=== PATIENT | female | born 1950 | race Caucasian/White ===

== ENCOUNTER 2022-11-06 16:39 | Inpatient (IN) | payer MEDICARE, OTHER, SELFPAY ==
--- NOTE | ~2022-11-06 | XR_ITS ---
EXAMINATION: XR PELVIS CLINICAL INFORMATION: Left hip hemiarthroplasty COMPARISON: 11/06/2022 TECHNIQUE: AP view of the pelvis. FINDINGS: Mild postoperative soft tissue gas at the left hip. The prosthetic left femoral head is well-positioned within the acetabulum. The noncemented femoral stem is well centered in the medullary cavity the proximal femoral diaphysis. No abnormal lucency or fracture around the newly placed hardware. The right hip is normal. The partially visualized osseous pelvic ring is intact. XR/XR pelvis 1-2V IMPRESSION: Status post left hip hemiarthroplasty. Alignment is normal at the left hip.
--- NOTE | ~2022-11-06 | XR_ITS ---
EXAMINATION: XR KNEE, LEFT CLINICAL INFORMATION: Fall and pain COMPARISON: None available. TECHNIQUE: Three views of the left knee. FINDINGS: No significant knee joint effusion. Patient was unable to straighten out her knee due to pain. No acute fracture or dislocation seen. No cortical disruption or trabecular irregularity to suggest underlying occult fracture. Surrounding soft tissues unremarkable. XR/XR knee LT 2V IMPRESSION: No acute fracture or dislocation.
--- NOTE | ~2022-11-06 | XR_ITS ---
EXAMINATION: XR HIP, LEFT WITH AP PELVIS CLINICAL INFORMATION: For surgical planning. Left hip fracture. COMPARISON: Pelvic CT scan of 11/06/2022 TECHNIQUE: Two views of the left hip. One view of the pelvis. XR/XR hip LT min 2V FINDINGS/IMPRESSION: Subcapital left femoral neck fracture is again noted with anterior apex angulation. The femoral head is well seated in the acetabulum. No additional acute fractures are noted in the pelvis. Mild deformity of the right inferior pubic ramus appears chronic. Right hip joint and symphysis pubis are intact. Limited evaluation of the sacroiliac joints is unremarkable. Posterior fusion hardware is redemonstrated at L4-L5. Anastomotic stephani are noted projecting over the right iliac bone.
--- NOTE | ~2022-11-06 | CT_ITS ---
EXAMINATION: CT PELVIS WITHOUT CONTRAST CLINICAL INFORMATION: History of 2 pelvic fractures. Fall. COMPARISON: I do not have any pertinent prior studies available for comparison TECHNIQUE: Helical scanning was performed with submillimeter collimation through the pelvis. Sagittal and coronal multiplanar 2-D reconstructions were obtained. This CT examination was performed using dose optimization techniques as appropriate, variously including the following: *Automated exposure control *Adjustment of mA and/or kV according to patient size (this includes techniques or standardized protocols for targeted exams where dose is matched to indication/reason for exam; i.e. extremities or head) *Use of iterative reconstruction technique DLP: 334 mGy-cm FINDINGS: PELVIS: Bladder is decompressed. Uterus is unremarkable. Extensive colonic diverticulosis but no obvious diverticulitis. Anastomotic staple line seen within the bowel loops in the visualized right lower quadrant. No significant free air or free fluid. OSSEOUS STRUCTURES: There are several abnormalities of note. There is a left femoral neck fracture seen with apex anterior angulation. The left femoral head itself is well seated within the acetabulum with the fracture impacted and rotated into the femoral head. The appearance is more acute to subacute. There are healed fractures of the bilateral inferior pubic rami. Degenerative changes in the contralateral right hip and pubic symphysis. Postoperative changes in the visualized lower lumbar spine with posterior pedicle screw and emilee fixation at L4/L5 with the mild residual grade 1 anterolisthesis at this level and secondary degenerative changes at L5/S1. CT/CT pelvis wo IV con IMPRESSION: Left femoral neck fracture with apex anterior angulation. The left femoral head itself is well seated within the acetabulum with the fracture impacted and rotated into the femoral head. The appearance is more acute to subacute but I do not have prior studies available for comparison.
[2022-11-06 16:43] VITALS: BP 137/76; BP 152/80; PULSE 103; PULSE 80; TEMP 36.1; O2SAT 96; O2SAT 98; BMI 21.8
[2022-11-06 17:00] VITALS: BP 127/57; PULSE 72; RESP 16; TEMP 37.1; O2SAT 97
--- NOTE | 2022-11-06 17:00 | ED.FALL ---
HPI - Fall General Chief Complaint: Fall Stated Complaint: L HIP PAIN S/P FALL PER EMS Time Seen by Provider: 11/06/22 16:51 Source: patient Mode of arrival: EMS Limitations: no limitations History of Present Illness HPI Narrative: Patient comes to the emergency room complaining of left-sided hip pain. Patient states that she was walking down the stairs on her deck, missed the last step, landed on the left side of her hip. Patient did not hit her head, did not lose consciousness, denies neck pain or headache. Patient states that she has severe left-sided hip pain and mild to moderate pain on the left knee. Patient has history of osteoma leash a, states that she has history of left a atraumatic pelvic fractures. Patient states she has severe pain in the left side of the hip and thinks it is broken. Related Data Allergies Allergy/AdvReac Type Severity Reaction Status Date / Time shellfish derived Allergy Hives Verified 11/06/22 18:23 Sulfa (Sulfonamide Allergy Hives Verified 11/06/22 18:23 Antibiotics) Review of Systems Review of Systems: Constitutional : No Weight loss, No Fever, No Chills, No Night Sweats, No Fatigue, No Malaise ENT/Mouth : No Hearing loss, No Ear Pain, No Nasal Congestion, No Sinus Pain, No Hoarseness, No sore throat, No Rhinorrhea, No Swallowing Difficulty Eyes: No Eye Pain, No Swelling, No Redness, No Foreign Body, No Discharge, No Vision Changes Cardiovascular : No Chest Pain, No SOB, No Dyspnea on Exertion, No Orthopnea, No Edema, No Palpitations Respiratory : No Cough, No Sputum, No Wheezing, No Smoke Exposure, No Dyspnea Gastrointestinal : No Nausea, No Vomiting, No Diarrhea, No Constipation, No abdominal Pain, No Hematochezia, No Melena Genitourinary : no irregular bleeding, No Dysuria, No Urinary Frequency, No Hematuria, No Urinary Incontinence, No Urgency, No Flank Pain, No Urinary Flow Changes, No Hesitancy Musculoskeletal : Complaining of severe 9/10 left-sided hip pain and mild to moderate left knee pain, No Myalgias, No Joint Swelling Skin : No Skin Lesions, No rash Neuro : No Weakness, No Numbness, No Paresthesias, No Loss of Consciousness, No Dizziness, No Headache Psych : No Anxiety/Panic, No Depression, No SI/HI/AH/VH, No Social Issues, Heme/Lymph: No Bruising, No Bleeding,No Lymphadenopathy Endocrine : No Polyuria, No Polydipsia, No Temperature Intolerance [facility] Past Medical History Medical History (Updated 11/06/22 @ 18:58 by Juany Peñaloza MD) Osteomalacia Social History Social History Alcohol intake: never Smoked in Last 30 Days: No Physical Exam Vital Signs: Vital Signs: Last Vital Signs Temp 98.2 F 11/06/22 18:53 Pulse 79 11/06/22 18:53 Resp 16 11/06/22 18:53 BP 115/70 11/06/22 18:53 Pulse Ox 99 11/06/22 18:53 O2 Del Method Room Air 11/06/22 18:53 BMI result Body Mass Index 21.8 Const: Other: Appearance: Alert. Oriented X3. No acute distress. Eyes: Pupils equal, round and reactive to light. ENT: Pharynx normal. Neck: Normal inspection. Neck supple. No lymph nodes noted. No crepitus CVS: Normal heart rate and rhythm. Pulses normal. Normal S1 and S2 Respiratory: No respiratory distress. Breath sounds normal. No Wheezing. No rales Abdomen: Soft and nontender. No rigidity. No distention. Skin: Skin warm and dry. Normal skin color. Normal skin turgor. Musculoskeletal: Patient is able to flex and extend the left knee. But patient cannot tolerate any movement of the left hip/pelvis Extremities: No lower extremity edema. No Lacerations. No Rash Neuro: Oriented X 3. No motor deficit. No sensory deficit. Moving all extremities. No slurred speech. CN 2 through 12 grossly intact Psych: calm, cooperative, normal affect Course Course Course Narrative: -all of patient's labs and imaging Medications Administered Discontinued Medications Generic Name Dose Route Start Last Admin Trade Name Freq PRN Reason Stop Dose Admin Oxycodone HCl 5 mg 11/06/22 16:57 11/06/22 17:12 Oxycodone Hcl Immed Release 5 Mg Tablet PO 11/06/22 16:58 5 mg ONCE ONE Administration Medical Decision Making Medical Decision Making [facility] [place] Narrative: -the patient given p.o. oxycodone for pain, minimal relief. Patient given IV morphine. -my interpretation of CT scan of the pelvis: Left neck femoral fracture present -I discussed the CT scan with Orthopedics, they are requesting plain films for surgical planning -I discussed with the patient that she will be admitted, this will be surgical -I discussed the patient with Dr. Win, patient being admitted Differential Diagnosis Differential Diagnoses: The differential diagnosis associated with the presentation includes Admission/Observation Consideration of admission/observation: Escalation of care including admission/observation considered Consult Healthcare Provider Management of the patient was discussed with: Hospitalist and [employer] Lab Data MDM Lab Attestation statement: I reviewed the patient's lab results. 11/06/22 17:09 11/06/22 17:09 Labs: Lab Results 11/06/22 11/06/22 Range/Units 17:09 17:09 WBC 6.7 (4.8-10.8) X10*3/uL RBC 4.14 L (4.20-5.50) X10*6/uL Hgb 12.9 (12.0-16.0) g/dl Hct 39.6 (37.0-47.0) % MCV 95.7 (80.0-98.0) fL MCH 31.2 (27.0-33.0) pg MCHC 32.6 (31.0-35.0) g/dl RDW 13.3 (11.0-16.0) % Plt Count 237 (160-400) X10*3/uL MPV 9.4 (9.4-12.3) fL Immature Gran % (Auto) 0.8 H (0.0-0.4) % Neut % (Auto) 61.5 (45-73) % Lymph % (Auto) 24.4 (20-40) % [place] % (Auto) 12.8 H (2-11) % Eos % (Auto) 0.0 (0-4) % Baso % (Auto) 0.5 (0-2) % Lymph # (Auto) 1.6 (1.2-4.9) X10*3/uL [place] # (Auto) 0.9 (0.1-1.2) X10*3/uL Eos # (Auto) 0.0 (0.0-0.4) X10*3/uL Baso # (Auto) 0.0 (0.0-0.2) X10*3/uL Abs Immat Gran (auto) 0.05 H (0.00-0.03) X10*3/uL Absolute Neuts (auto) 4.1 (2.0-8.3) x10*3/uL Absolute Nucleated RBC 0.000 (0.0-0.012) X10*3/uL Nucleated RBC % (auto) 0.0 (0.0-0.2) /100WBC Sodium 143 (135-145) mmol/L Potassium 4.7 (3.3-5.1) mmol/L Chloride 106 (96-108) mmol/L Carbon Dioxide 27 (22-29) mmol/L Anion Gap 15 (12-20) BUN 19 H (9-16) mg/dL Creatinine 0.93 (0.5-1.4) mg/dL Estim Creat Clear Calc 49.6 Estimated GFR 59 Random Glucose 102 (60-115) mg/dL Calcium 9.8 (8.4-10.2) mg/dL Radiology Impression Discussion of test interpretation with radiology: I have reviewed the radiologist's reading. Radiologist Impression: FINDINGS: PELVIS: Bladder is decompressed. Uterus is unremarkable. Extensive colonic diverticulosis but no obvious diverticulitis. Anastomotic staple line seen within the bowel loops in the visualized right lower quadrant. No significant free air or free fluid.? OSSEOUS STRUCTURES: There are several abnormalities of note. There is a left femoral neck fracture seen with apex anterior angulation. The left femoral head itself is well seated within the acetabulum with the fracture impacted and rotated into the femoral head. The appearance is more acute to subacute. There are healed fractures of the bilateral inferior pubic rami. Degenerative changes in the contralateral right hip and pubic symphysis. Postoperative changes in the visualized lower lumbar spine with posterior pedicle screw and emilee fixation at L4/L5 with the mild residual grade 1 anterolisthesis at this level and secondary degenerative changes at L5/S1.? CT/CT pelvis wo IV con IMPRESSION: Left femoral neck fracture with apex anterior angulation. The left femoral head itself is well seated within the acetabulum with the fracture impacted and rotated into the femoral head. The appearance is more acute to subacute but I do not have prior studies available for comparison. Critical Care Time Critical Care Time Critical Care Time: Yes Total Critical Care Time: 60 Attestation: I have personally provided critical care time. Time includes review of lab data, radiology results, discussion with consultants, and monitoring for potential decompensation. Intervention performed as documented. Discharge Plan Discharge Clinical Impression: Closed fracture of left hip Patient Disposition: Admitted As Inpatient
[2022-11-06] MEDS: oxyCODONE HCl Immed Release 5 MG TABLET PO (17:12)
[2022-11-06 17:13] LABS: MANUAL DIFF FLAG NO
[2022-11-06 17:14] LABS: Basophils Percent Auto 0.5 % (0-2); Hematocrit 39.6 % (37.0-47.0); Hemoglobin 12.9 g/dl (12.0-16.0); Imm Gran Abs Auto 0.05 X10*3/uL (0.00-0.03); Imm Gran Pct Auto 0.8 % (0.0-0.4); Lymphocytes Absolute Auto 1.6 X10*3/uL (1.2-4.9); Lymphocytes Percent Auto 24.4 % (20-40); Mean Corpuscular HGB Conc 32.6 g/dl (31.0-35.0); Mean Corpuscular Hemoglobin 31.2 pg (27.0-33.0); Mean Corpuscular Volume 95.7 fL (80.0-98.0); Mean Platelet Volume 9.4 fL (9.4-12.3); Monocytes Absolute Auto 0.9 X10*3/uL (0.1-1.2); Monocytes Percent Auto 12.8 % (2-11); Neutrophils Absolute Auto 4.1 x10*3/uL (2.0-8.3); Neutrophils Percent Auto 61.5 % (45-73); Platelet Count 237 X10*3/uL (160-400); Red Blood Count 4.14 X10*6/uL (4.20-5.50); Red Cell Distribution Width 13.3 % (11.0-16.0); White Blood Count 6.7 X10*3/uL (4.8-10.8)
[2022-11-06 17:25] LABS: Anion Gap 15 (12-20); Blood Urea Nitrogen 19 mg/dL (9-16); Calcium 9.8 mg/dL (8.4-10.2); Carbon Dioxide 27 mmol/L (22-29); Chloride 106 mmol/L (96-108); Creatinine Clr Calc Pharmacy 49.6; Estimated Glomerular Filt Rate 59; Glucose Random 102 mg/dL (60-115); Potassium 4.7 mmol/L (3.3-5.1); Sodium 143 mmol/L (135-145)
[2022-11-06 18:53] VITALS: BP 115/70; PULSE 79; RESP 16; TEMP 36.8; O2SAT 99
[2022-11-06] MEDS: Morphine Sulfate 4 MG/ML CARTRIDGE IVPUSH ×2 (19:48→22:21)
[2022-11-06 19:50] VITALS: BP 143/58; PULSE 73; RESP 15; O2SAT 96
--- NOTE | 2022-11-06 20:22 | PM.IMHP ---
History of Present Illness Date of Service: 11/06/22 Chief Complaint: hip fracture 72-year-old female past medical history of hypertension, AFib status post cardioversion no longer on anticoagulation, presents the hospital after mechanical fall. Patient reports that she was on the deck, was going down the deck missed a step and fell initially on her knee then on her hip shortly after developing significant left hip pain to the point that she could not get up or ambulate. Patient reports that she was visiting the area of for her granddaughter's graduation, has been otherwise well, with no acute illness. She reports no chest pain, no shortness of breath, no headache or change in vision, no abdominal pain nausea or vomiting, no diarrhea constipation, no urinary symptoms and no lower extremity edema. Currently patient's pain is mildly controlled and awaiting pain medications On arrival to the ED patient hemodynamically stable slightly elevated blood pressure otherwise no abnormal vitals Labs are significant for WBC count of 6.7, hemoglobin of 12.9, hematocrit 39.6, labs otherwise unremarkable Pelvic CT shows left femoral neck fracture with apex anterior angulation, no acute fracture or dislocation of the left knee, Patient will be admitted for further management of hip fracture Review of Systems Review of Systems: Yes all other systems are reviewed and are negative [facility] Medical History (Updated 11/06/22 @ 21:08 by Herber Gupta MD) Afib Hypertension Osteomalacia Surgical History (Updated 11/06/22 @ 21:06 by Herber Gupta MD) H/O hernia repair History of History of cholecystectomy History of surgery on arm Social History (Updated 11/06/22 @ 21:06 by Herber Gupta MD) Alcohol intake: never Meds Allergies Allergy/AdvReac Type Severity Reaction Status Date / Time shellfish derived Allergy Hives Verified 11/06/22 18:23 Sulfa (Sulfonamide Allergy Hives Verified 11/06/22 18:23 Antibiotics) Active Medications: Current Medications Acetaminophen (Acetaminophen 325 Mg Tablet) 650 mg PO Q6H PRN PRN Reason: Pain, Mild (Pain Scale 1-3) Docusate Sodium (Docusate Sodium 100 Mg Capsule) 100 mg PO DAILY PRN PRN Reason: Constipation Morphine Sulfate (Morphine Sulfate 4 Mg/Ml Cartridge) 4 mg IVPUSH Q4H PRN; Protocol PRN Reason: Pain, Severe (Pain Scale 7-10) Ondansetron HCl (Ondansetron Hcl 4 Mg/2 Ml Vial) 4 mg IVPUSH Q8H PRN PRN Reason: Nausea and Vomiting Pharmacy Consult (Consult Rx Perform Med Rec) 1 each MISCELLANE ONCE PRN PRN Reason: Consult order Sodium Chloride (0.9 % Sodium Chloride Flush 3 Ml Syringe) 3 ml IVFLUSH QSHIFT SUNSHINE Physical Exam Vital Signs and Narrative: Vital Signs: Last Vital Signs Temp 98.2 F 11/06/22 18:53 Pulse 73 11/06/22 19:50 Resp 15 11/06/22 19:50 BP 143/58 H 11/06/22 19:50 Pulse Ox 96 11/06/22 19:50 O2 Del Method Room Air 11/06/22 19:50 BMI result Body Mass Index 21.8 Const: General: cooperative and no acute distress Orientation/consciousness: patient oriented x3 Eyes: General: appearance normal, both eyes and all related structures Resp: Effort & Inspection: normal respiratory effort and able to speak in complete sentences Auscultation: clear to auscultation bilaterally Cardio: Rate: regular rate Rhythm: regular rhythm GI: Palpation (GI): Soft to palpation Auscultation: normal bowel sounds Skin: General skin exam: no rashes or lesions noted Neuro: General: patient oriented x3 Cognition (Neuro): normal cognition Extrem: Other: Leg is flexed at the hip, mobility causes significant pain General: Yes normal to inspection and Yes no pedal edema Results Labs 11/06/22 17:09 11/06/22 17:09 Labs: Laboratory Results - last 24 hr 11/06/22 11/06/22 17:09 17:09 MCV 95.7 MCH 31.2 MCHC 32.6 RDW 13.3 Plt Count 237 MPV 9.4 Immature Gran % (Auto) 0.8 H Neut % (Auto) 61.5 Lymph % (Auto) 24.4 [place] % (Auto) 12.8 H Eos % (Auto) 0.0 Baso % (Auto) 0.5 Lymph # (Auto) 1.6 [place] # (Auto) 0.9 Eos # (Auto) 0.0 Baso # (Auto) 0.0 Abs Immat Gran (auto) 0.05 H Absolute Neuts (auto) 4.1 Absolute Nucleated RBC 0.000 Nucleated RBC % (auto) 0.0 Anion Gap 15 Estim Creat Clear Calc 49.6 Estimated GFR 59 Random Glucose 102 Calcium 9.8 Imaging Radiologist's Impressions: Impressions Pelvis CT 11/06/22 17:57 IMPRESSION: Left femoral neck fracture with apex anterior angulation. The left femoral head itself is well seated within the acetabulum with the fracture impacted and rotated into the femoral head. The appearance is more acute to subacute but I do not have prior studies available for comparison. Knee X-Ray 11/06/22 18:05 IMPRESSION: No acute fracture or dislocation. Assessment and Plan (1) Fracture of femoral neck, left, closed: Status: Acute Plan 72-year-old female with past medical history of hypertension, AFib presents the hospital after a fall found to have left femoral neck fracture # left femoral neck fracture - due to mechanical fall - she has a revised cardiac risk index of 0, and was fully functional independent prior to the fall therefore I do not forsee a contraindication to surgery and repair - will continue analgesics for pain control - orthopedics consulted # hypertension - elevated - will resume home antihypertensives - hold in a.m. for anesthesia prior to surgery # history of AFib - status post cardioversion, no longer on anticoagulation per patient - cont home meds DVT prophylaxis: SCDs Given patient's need for repair of femoral neck fracture patient require minimum 2 nights inpatient hospital stay Time Spent With Patient Time: Total time managing care of this patient today ____ minutes. Quality Stroke Does the patient have a stroke diagnosis?: No VTE Prior VTE?: No VTE Risk Level:: Surgical - very high VTE Device Contraindication: N/A - Device Ordered VTE Drug Contraindication: Treatment Not Indicated
[2022-11-06 21:54] VITALS: BP 161/70; PULSE 64; RESP 16; TEMP 36.1; O2SAT 95
--- NOTE | 2022-11-06 22:21 | P.HPOP_ITS ---
History of Present Illness History of Present Illness Date of Service: 11/06/22 Chief complaint: hip fracture Narrative: Claudia Garcia is a 72 year old female with a past medical history of hypertension, AFib status post cardioversion no longer on anticoagulation, presented to the ED after sustaining a mechanical fall.? Patient reports that she was on the deck, was going down the stairs and missed a step. She reports that her knee took the brunt of the fall and then she landed on her hip. She felt immediate pain and was unable to ambulate. Of note, the patient is from [place] and [facility] Review of Systems Review of Systems: Yes all other systems are reviewed and are negative [facility] Past Medical History Medical History (Updated 11/06/22 @ 21:08 by Herber Gupta MD) Afib Hypertension Osteomalacia Surgical History Surgical History (Updated 11/06/22 @ 21:06 by Herber Gupta MD) H/O hernia repair History of History of cholecystectomy History of surgery on arm Social History Social History (Updated 11/06/22 @ 21:06 by Herber Gupta MD) Alcohol intake: never Patient Tobacco Use Status: Never used Tobacco Meds Allergies Allergy/AdvReac Type Severity Reaction Status Date / Time shellfish derived Allergy Hives Verified 11/06/22 18:23 Sulfa (Sulfonamide Allergy Hives Verified 11/06/22 18:23 Antibiotics) Active Medications: Current Medications Acetaminophen (Acetaminophen 325 Mg Tablet) 650 mg PO Q6H PRN PRN Reason: Pain, Mild (Pain Scale 1-3) Docusate Sodium (Docusate Sodium 100 Mg Capsule) 100 mg PO DAILY PRN PRN Reason: Constipation Morphine Sulfate (Morphine Sulfate 4 Mg/Ml Cartridge) 4 mg IVPUSH Q4H PRN; Protocol PRN Reason: Pain, Severe (Pain Scale 7-10) Last Admin: 11/06/22 22:21 Dose: 4 mg Ondansetron HCl (Ondansetron Hcl 4 Mg/2 Ml Vial) 4 mg IVPUSH Q8H PRN PRN Reason: Nausea and Vomiting Pharmacy Consult (Consult Rx Perform Med Rec) 1 each MISCELLANE ONCE PRN PRN Reason: Consult order Sodium Chloride (0.9 % Sodium Chloride Flush 3 Ml Syringe) [facility] Exam Vital Signs: Vital Signs: Last Vital Signs Temp 96.9 F 11/06/22 21:54 Pulse 64 11/06/22 21:54 Resp 16 11/06/22 21:54 BP 161/70 H 11/06/22 21:54 Pulse Ox 95 11/06/22 21:54 O2 Del Method Room Air 11/06/22 21:54 BMI result Body Mass Index 21.8 Const: General: cooperative, healthy appearing and no acute distress Resp: Effort & Inspection: normal respiratory effort and able to speak in complete sentences Cardio: Rate: regular rate Peripheral pulses: Peripheral pulses 2+ throughout GI: Palpation (GI): Soft to palpation Skin: Lesions: no lesions Rashes: no rashes Extrem: Other: left lower extremity is shortened and externally rotated. Pain with log roll. Sensation reportedly intact. Pedal pulse intact. Results Labs 11/06/22 17:09 11/06/22 17:09 Labs: Abnormal lab results 11/06/22 11/06/22 Range/Units 17:09 17:09 RBC 4.14 L (4.20-5.50) X10*6/uL Immature Gran % (Auto) 0.8 H (0.0-0.4) % [place] % (Auto) 12.8 H (2-11) % Abs Immat Gran (auto) 0.05 H (0.00-0.03) X10*3/uL BUN 19 H (9-16) mg/dL H & H 11/06/22 Range/Units 17:09 Hgb 12.9 (12.0-16.0) g/dl Hct 39.6 (37.0-47.0) % All other labs normal. Assessment and Plan (1) Fracture of femoral neck, left, closed: Status: Acute (2) Closed fracture of left hip: Status: Acute Plan I discussed the case with Dr. Nugent and explained the extent of the injury to the patient and options available which include surgical intervention. I explained the procedure in detail along with the length of recovery and rehab course. I explained the risk, benefits and alternatives. Risk including, but not limited to infection, blood clots, bleeding, non union or malunion and nerve/ti ssue damage to surrounding areas. I answered all their questions and with their understanding they have consented to move forward with Operative Fixation of the left hip. The patient will be T&S, med clearance obtained and NPO after midnight. Patients daughter Kristel was also at bedside. All questions were answered. Kristel would like a call after surgery and can be reached at [phone] Time Spent With Patient Time: Total time managing care of this patient today ____ minutes. Quality Stroke Does the patient have a stroke diagnosis?: No VTE Prior VTE?: No VTE Risk Level:: Surgical - very high VTE Device Contraindication: N/A - Device Ordered VTE Drug Contraindication: Treatment Not Indicated Procedures Date of Service Date of Service: 11/06/22
[2022-11-07] VITALS (14 sets, daily range): BP systolic 102–169; BP diastolic 30–75; PULSE 68–97; RESP 13–18; TEMP 36.2–37.6; O2SAT 93–98
[2022-11-07] MEDS: Acetaminophen 325 MG TABLET 650 MG PO ×2 (00:50→23:12)
[2022-11-07] MEDS: 0.9 % Sodium Chloride Flush 3 ML SYRINGE IVFLUSH ×2 (00:52→07:57)
[2022-11-07] MEDS: Morphine Sulfate 4 MG/ML CARTRIDGE IVPUSH ×2 (02:13→06:24)
[2022-11-07 05:47] LABS: MANUAL DIFF FLAG NO
[2022-11-07 05:50] LABS: Basophils Percent Auto 0.4 % (0-2); Hematocrit 35.6 % (37.0-47.0); Hemoglobin 11.7 g/dl (12.0-16.0); Imm Gran Abs Auto 0.04 X10*3/uL (0.00-0.03); Imm Gran Pct Auto 0.5 % (0.0-0.4); Lymphocytes Absolute Auto 1.4 X10*3/uL (1.2-4.9); Lymphocytes Percent Auto 17.2 % (20-40); Mean Corpuscular HGB Conc 32.9 g/dl (31.0-35.0); Mean Corpuscular Hemoglobin 31.5 pg (27.0-33.0); Mean Corpuscular Volume 95.7 fL (80.0-98.0); Mean Platelet Volume 9.9 fL (9.4-12.3); Monocytes Absolute Auto 1.1 X10*3/uL (0.1-1.2); Monocytes Percent Auto 12.9 % (2-11); Neutrophils Absolute Auto 5.8 x10*3/uL (2.0-8.3); Platelet Count 212 X10*3/uL (160-400); Red Blood Count 3.72 X10*6/uL (4.20-5.50); Red Cell Distribution Width 13.3 % (11.0-16.0); White Blood Count 8.4 X10*3/uL (4.8-10.8)
[2022-11-07 06:08] LABS: Anion Gap 12 (12-20); Blood Urea Nitrogen 19 mg/dL (9-16); Calcium 8.8 mg/dL (8.4-10.2); Carbon Dioxide 25 mmol/L (22-29); Chloride 105 mmol/L (96-108); Creatinine Clr Calc Pharmacy 62.4; Estimated Glomerular Filt Rate > 60; Glucose Random 106 mg/dL (60-115); Sodium 138 mmol/L (135-145)
--- NOTE | 2022-11-07 08:42 | PHA.MEDREC ---
Pharmacy Consult ? Medication Reconciliation Pharmacy has completed the medication reconciliation. Spoke to patient to confirm meds.
--- NOTE | 2022-11-07 08:51 | HO.ANESPROP2 ---
HPI - Anesthesia Eval Consult details Narrative: Left Hip fracture PMFSH Active Problems Active Problems: All Active Problems (Updated 11/06/22 @ 21:08 by Herber Gupta MD) Fracture of femoral neck, left, closed (Acute) Closed fracture of left hip (Acute) Past Medical History Medical History (Updated 11/07/22 @ 08:51 by Ba Padilla MD) Afib Hypertension Hypothyroid Osteomalacia Family History Family history of problems with anesthesia: No Surgical History Surgical History (Updated 11/06/22 @ 21:06 by Herber Gupta MD) H/O hernia repair History of History of cholecystectomy History of surgery on arm History of Problems with Anesthesia: No Social History Social History (Updated 11/06/22 @ 21:06 by Herber Gupta MD) Household Members: Spouse Housing: House Do you presently have visiting nurse or other home services: No Alcohol intake: never Patient Tobacco Use Status: Never used Tobacco Meds Allergies Allergy/AdvReac Type Severity Reaction Status Date / Time shellfish derived Allergy Hives Verified 11/06/22 18:23 Sulfa (Sulfonamide Allergy Hives Verified 11/06/22 18:23 Antibiotics) Active Medications: Current Medications Acetaminophen (Acetaminophen 325 Mg Tablet) 650 mg PO Q6H PRN PRN Reason: Pain, Mild (Pain Scale 1-3) Last Admin: 11/07/22 00:50 Dose: 650 mg Docusate Sodium (Docusate Sodium 100 Mg Capsule) 100 mg PO DAILY PRN PRN Reason: Constipation Cefazolin Sodium/Dextrose (Ancef) 2 gm in 50 mls @ 100 mls/hr IV PREOP ONE Stop: 11/07/22 08:58 Morphine Sulfate (Morphine Sulfate 4 Mg/Ml Cartridge) 4 mg IVPUSH Q4H PRN; Protocol PRN Reason: Pain, Severe (Pain Scale 7-10) Last Admin: 11/07/22 06:24 Dose: 4 mg Ondansetron HCl (Ondansetron Hcl 4 Mg/2 Ml Vial) 4 mg IVPUSH Q8H PRN PRN Reason: Nausea and Vomiting Pharmacy Consult (Consult Rx Perform Med Rec) 1 each MISCELLANE ONCE PRN PRN Reason: Consult order Sodium Chloride (0.9 % Sodium Chloride Flush 3 Ml Syringe) 3 ml IVFLUSH QSHIFT [facility] Last Admin: 11/07/22 07:57 Dose: 3 ml Home Medications Medication Instructions Recorded Confirmed Last Taken Type albuterol sulfate 2.5 mg/3 mL 2.5 mg inhalation Q6H PRN wheezing 11/07/22 11/07/22 Unknown History (0.083 %) solution for nebulization alprazolam 0.25 mg tablet 0.25 mg PO TID PRN anxiety 11/07/22 11/07/22 Unknown History bupropion HCl 75 mg tablet 75 mg PO BID 11/07/22 11/07/22 11/06/22 09:00 History colestipol 1 gram tablet 1 g PO DAILY 11/07/22 11/07/22 11/06/22 09:00 History hydrochlorothiazide 25 mg tablet 25 mg PO DAILY blood pressure 11/07/22 11/07/22 11/06/22 09:00 History hydrocodone 7.5 mg-acetaminophen 1 tab PO Q6H PRN Breakthrough Pain 11/07/22 11/07/22 Unknown History 325 mg tablet irbesartan 300 mg tablet 300 mg PO DAILY 11/07/22 11/07/22 11/06/22 09:00 History levothyroxine 125 mcg tablet 62.5 mcg PO DAILY@0600 11/07/22 11/07/22 11/06/22 06:00 History (Synthroid) metoprolol tartrate 50 mg tablet 50 mg PO BID 11/07/22 11/07/22 11/06/22 09:00 History multivitamin 1 tab PO DAILY 11/07/22 11/07/22 11/06/22 09:00 History pantoprazole 40 mg tablet,delayed 40 mg PO BID 11/07/22 11/07/22 11/06/22 09:00 History release Exam Exam Date and Time: November 07, 2022 0851 Height,Weight and Vital Signs: Height 5 ft 6 in Weight 61.3 kg Last Vital Signs Temp 98.4 F 11/07/22 07:38 Pulse 72 11/07/22 07:38 Resp 18 11/07/22 07:38 BP 119/60 11/07/22 07:38 Pulse Ox 93 11/07/22 07:38 O2 Del Method Room Air 11/07/22 07:38 Pertinent Lab Results Pertinent Lab Results: Laboratory Tests 11/06/22 11/06/22 11/06/22 17:09 17:09 23:19 WBC 6.7 RBC 4.14 L Hgb 12.9 Hct 39.6 MCV 95.7 MCH 31.2 MCHC 32.6 RDW 13.3 Plt Count 237 MPV 9.4 Immature Gran % (Auto) 0.8 H Neut % (Auto) 61.5 Lymph % (Auto) 24.4 [place] % (Auto) 12.8 H Eos % (Auto) 0.0 Baso % (Auto) 0.5 Lymph # (Auto) 1.6 [place] # (Auto) 0.9 Eos # (Auto) 0.0 Baso # (Auto) 0.0 Abs Immat Gran (auto) 0.05 H Absolute Neuts (auto) 4.1 Absolute Nucleated RBC 0.000 Nucleated RBC % (auto) 0.0 Sodium 143 Potassium 4.7 Chloride 106 Carbon Dioxide 27 Anion Gap 15 BUN 19 H Creatinine 0.93 Estim Creat Clear Calc 49.6 Estimated GFR 59 Random Glucose 102 Calcium 9.8 Blood Type A Positive Antibody Screen NEGATIVE 11/07/22 11/07/22 05:20 05:20 WBC 8.4 RBC 3.72 L Hgb 11.7 L Hct 35.6 L MCV 95.7 MCH 31.5 MCHC 32.9 RDW 13.3 Plt Count 212 MPV 9.9 Immature Gran % (Auto) 0.5 H Neut % (Auto) 69.0 Lymph % (Auto) 17.2 L [place] % (Auto) 12.9 H Eos % (Auto) 0.0 Baso % (Auto) 0.4 Lymph # (Auto) 1.4 [place] # (Auto) 1.1 Eos # (Auto) 0.0 Baso # (Auto) 0.0 Abs Immat Gran (auto) 0.04 H Absolute Neuts (auto) 5.8 Absolute Nucleated RBC 0.000 Nucleated RBC % (auto) 0.0 Sodium 138 Potassium 4.0 Chloride 105 Carbon Dioxide 25 Anion Gap 12 BUN 19 H Creatinine 0.74 Estim Creat Clear Calc 62.4 Estimated GFR > 60 Random Glucose 106 Calcium 8.8 D Blood Type Antibody Screen Airway Mallampati Class: II TM Dist: >3cm Neck ROM: Full Heart: RRR Lungs: CTA Assessment and Plan Assessment Anesthesia Assessment: Anesthesia Plan Discussed and Chart Reviewed Final Anesthetic Review Family History of Problems with Anesthesia: No History of Problems with Anesthesia: No NPO: Yes ASA Class: II Final Preanesthetic Review: No Changes in Pt Med Stat, Meds/Allgs Chart Reviewed, Consent Obtained/Reviewed and Anes Risks/Benef Reviewed Patient Risk: Intermediate Procedure Risk: Intermediate Anesthetic Plan Anesthetic Plan: GA Disposition: Standard PACU
--- NOTE | 2022-11-07 10:44 | HO.PM.IMPN ---
Subjective Subjective Date of Service: 11/07/22 Interval History: hip fracture Review of Systems s/p hip fracture repair, says that hip pain seems to be significantly better. Denies any chest pain or shortness of breath or fever or chills Eating dinner. Physical Exam Vital Signs: Vital Signs: Last Vital Signs Temp 98.4 F 11/07/22 07:38 Pulse 72 11/07/22 07:38 Resp 18 11/07/22 07:38 BP 119/60 11/07/22 07:38 Pulse Ox 93 11/07/22 07:38 O2 Del Method Room Air 11/07/22 07:38 BMI result Body Mass Index 21.8 Appearance: Alert.? Oriented X3. cvs: rrr, [id number] res: clear to auscultation ,no rhonchii or wheezing abd: no rebound or guarding ,nt, bs present. ext pulses present , no cyanosis . left hip area-seems fine ,no pain neuro: axo3 , nonfocal. Objective Data Active Medications Acetaminophen (Acetaminophen 325 Mg Tablet) 650 mg PO Q6H PRN PRN Reason: Pain, Mild (Pain Scale 1-3) Last Admin: 11/07/22 00:50 Dose: 650 mg Documented By: MANOJ Albuterol Sulfate (Albuterol Sulfate (0.083%) 2.5 Mg/3 Ml Vial.Neb) 2.5 mg INHALE ONCE PRN PRN Reason: Wheezing Docusate Sodium (Docusate Sodium 100 Mg Capsule) 100 mg PO DAILY PRN PRN Reason: Constipation Fentanyl (Fentanyl Citrate/Pf 100 Mcg/2 Ml Vial) 50 mcg IVPUSH Q5M PRN; Protocol PRN Reason: Pain, Severe (Pain Scale 7-10) Hydromorphone HCl (Hydromorphone Hcl 0.5 Mg/0.5 Ml Syringe) 0.5 mg IVPUSH Q5M PRN; Protocol PRN Reason: Pain, Severe (Pain Scale 7-10) Promethazine HCl 12.5 mg/ (Sodium Chloride) 50.5 mls @ 202 mls/hr IV ONCE PRN PRN Reason: Nausea and Vomiting Morphine Sulfate (Morphine Sulfate 4 Mg/Ml Cartridge) 4 mg IVPUSH Q4H PRN; Protocol PRN Reason: Pain, Severe (Pain Scale 7-10) Last Admin: 11/07/22 06:24 Dose: 4 mg Documented By: MANOJ Ondansetron HCl (Ondansetron Hcl 4 Mg/2 Ml Vial) 4 mg IVPUSH Q8H PRN PRN Reason: Nausea and Vomiting Pharmacy Consult (Consult Rx Perform Med Rec) 1 each MISCELLANE ONCE PRN PRN Reason: Consult order Sodium Chloride (0.9 % Sodium Chloride Flush 3 Ml Syringe) [facility] Last Admin: 11/07/22 07:57 Dose: 3 ml Documented By: RONNY Labs 11/07/22 05:20 11/07/22 05:20 Labs: Laboratory Results - last 24 hr 11/06/22 11/06/22 11/06/22 17:09 17:09 23:19 MCV 95.7 MCH 31.2 MCHC 32.6 RDW 13.3 Plt Count 237 MPV 9.4 Immature Gran % (Auto) 0.8 H Neut % (Auto) 61.5 Lymph % (Auto) 24.4 Nelson % (Auto) 12.8 H Eos % (Auto) 0.0 Baso % (Auto) 0.5 Lymph # (Auto) 1.6 Nelson # (Auto) 0.9 Eos # (Auto) 0.0 Baso # (Auto) 0.0 Abs Immat Gran (auto) 0.05 H Absolute Neuts (auto) 4.1 Absolute Nucleated RBC 0.000 Nucleated RBC % (auto) 0.0 Anion Gap 15 Estim Creat Clear Calc 49.6 Estimated GFR 59 Random Glucose 102 Calcium 9.8 Blood Type A Positive Antibody Screen NEGATIVE 11/07/22 11/07/22 05:20 05:20 MCV 95.7 MCH 31.5 MCHC 32.9 RDW 13.3 Plt Count 212 MPV 9.9 Immature Gran % (Auto) 0.5 H Neut % (Auto) 69.0 Lymph % (Auto) 17.2 L [place] % (Auto) 12.9 H Eos % (Auto) 0.0 Baso % (Auto) 0.4 Lymph # (Auto) 1.4 Nelson # (Auto) 1.1 Eos # (Auto) 0.0 Baso # (Auto) 0.0 Abs Immat Gran (auto) 0.04 H Absolute Neuts (auto) 5.8 Absolute Nucleated RBC 0.000 Nucleated RBC % (auto) 0.0 Anion Gap 12 Estim Creat Clear Calc 62.4 Estimated GFR > 60 Random Glucose 106 Calcium 8.8 D Blood Type Antibody Screen Assessment and Plan (1) Fracture of femoral neck, left, closed: Status: Acute (2) Closed fracture of left hip: Status: Acute Plan 72-year-old female with past medical history of hypertension, AFib presents the hospital after a fall found to have left femoral neck fracture left femoral neck fracture- due to mechanical fall s/p left hip arthroplasty continue analgesics for pain control hypertension: Stable - will resume home antihypertensives - hold in a.m. for anesthesia prior to surgery history of AFib - status post cardioversion, no longer on anticoagulation per patient - cont home meds DVT prophylaxis: SCDs Inpatient nned:left femoral neck fracture- due to mechanical falls/p left hip arthroplasty-need pt/ot ,pain management Time Spent With Patient Time: Total time managing care of this patient today ____ minutes. Quality Stroke Does the patient have a stroke diagnosis?: No VTE Prior VTE?: No VTE Risk Level:: Surgical - very high VTE Device Contraindication: N/A - Device Ordered VTE Drug Contraindication: Treatment Not Indicated
--- NOTE | 2022-11-07 10:49 | P.BOP_ITS ---
Brief Operative Note Date of Service: 11/07/22 Pre-op diagnosis: Left femoral neck fracture Post-op diagnosis: same Procedure: Left hip hemiarthroplasty Implants: Zeus Trident 2 127 #5 with +0 bipolar Surgeon: Basilio Nugent MD Anesthesia: GETA and local Was an Underwear Trimmer used for this Procedure?: Yes Underwear Trimmer: Bria Singh Estimated blood loss (mL): 150 IV fluids (mL): 1,000 Pathology: other Condition: stable Disposition: PACU
--- NOTE | 2022-11-07 10:53 | W.PM.OPN ---
Operative Note Operative Note Date of Service: 11/07/22 Narrative: Date of Service: 11/07/22 Pre-op diagnosis: Left femoral neck fracture Post-op diagnosis: same Procedure: Left hip hemiarthroplasty Implants: Zeus Trident 2 127 #5 with +0 26/46 bipolar Surgeon: Basilio Nugent MD Anesthesia: GETA and local Was an Senior Market Intelligence Consultant used for this Procedure?: Yes Senior Market Intelligence Consultant: Bria Singh Estimated blood loss (mL): 150 IV fluids (mL): 1,000 Pathology: other Condition: stable Disposition: PACU Procedure in detail: Patient was brought to the operative room placed in the lateral decubitus position. All bony prominences were well padded and the was prepped and draped in standard sterile fashion. IV antibiotics per weight were administered and a time-out was called to identify proper site proper procedure proper surgeon. Radiographs were available and confirmed. TXA was administered at closure. I began by making a curvilinear incision over the posterolateral aspect of the greater trochanter. Dissection was taken down to the tensor fascia which was incised in line with the incision and a Charnley retractor was placed. The hip was internally rotated and the external rotators were identified. All vessels in the area were cauterized and a full-thickness capsular/external rotator layer was developed in a hockey-stick fashion starting just proximal to the piriformis. This layer was tagged and the displaced femoral neck fracture was identified. Clean-up cuts was performed while protection the posterolateral soft tissues and the head was removed and measured (46mm) on the back table. I then copiously irrigated the acetabulum and removed all bony fragments. Once this was done I used a cookie cutter to lateralize and a Charteresaey awl to identify the canal and then sequentially broached up to a 127 deg #5. I then trialed with a standard head and a bipolar component matching the femoral head size. I was satisfied with the range of motion and stability and length. Therefore I removed all instrumentation and copiously irrigated. I then placed my final femoral implant and then retrialed. I was satisfied with the +0/26/46 implants. The final bipolar componenets were then placed. I closed the capsular layer with FiberWire and then, after a three minute iodine soak. I performed a layered closure with stephani on skin. The patient was placed in sterile dressing extubated brought to recovery room in stable condition there were no known complications.
[2022-11-07] MEDS: Acetaminophen 1,000 MG/100 ML PIGGYBACK 400 MG IV (11:26)
[2022-11-07] MEDS: oxyCODONE HCl Immed Release 5 MG TABLET PO ×2 (11:29→23:12)
--- NOTE | 2022-11-07 11:59 | MHC.CM.PN ---
Addendum entered by Rose Mary Bethea 11/07/22 15:23: PT AND DAUGHTER ARE REVIEWING LIST OF SNF'S. THEY HAVE PROVIDED ONE PREFERENCE REFERRAL MADE THEY WILL PROVIDE MORE CHOICES TOMORROW Original Note: PT OFF UNIT, CM MET WITH PTS DAUGHTER, HIMANSHU WHO PROVIDED THE FOLLOWING INFORMATION: PT LIVES ALONE IN [facility] WHERE SHE IS INDEPENDENT WITH CARE PT HAS NO DME AND NO HOME SERVICES PTS PCP RECENTLY CHANGED, HIMANSHU IS UNSURE OF THE NAME, BUT SAYS PT GOES TO [facility] SHE IS ALSO UNSURE IF PT HAS AN ACCESSIBLE HCP, SHE WILL LOOK INTO IT AND IS AWARE CM CAN ASSIST WITH COMPLETION OF A NEW ONE SHE IS ALSO AWARE IT WILL BE REQUIRED FOR PT TO GO TO STR IMM DELIVERED HIMANSHU IS AWARE PT WILL NEED STR UPON DC SHE REPORTS THE PT WILL WANT TO BE NEAR HER HOME IN [place] SHE SAYS THE [facility] WOULD BE CLOSE TO PTS HOME SHE ALSO EXPLAINS HER SISTER WILL BE ABLE TO STAY WITH PT WHEN SHE DOES RETURN HOME A LIST OF SNFS NEAR PTS HOME WAS PROVIDED PER PTS DAUGHTER, IF PT QUALIFIES FOR AR, THEY WOULD BE INTERESTED IN [facility] PT WILL NEED BLS TRANSPORT
[2022-11-07] MEDS: ceFAZolin Sodium/Dextrose,Iso 2 GM/50 ML PIGGYBACK IV (13:06)
[2022-11-07] MEDS: Lactated Ringers 1,000 ML 100 ML IVCONT ×2 (13:07→23:07)
[2022-11-07] MEDS: Omeprazole 20 MG CAPSULE.DR PO (16:09)
--- NOTE | 2022-11-07 16:57 | PC.NURSE ---
Assumed care at 0700- Patient went to OR for left hip fx. Pt returned from PACU, stable. On 2 liters nasal cannula tolerating well. IV Cefazolin given and LR infusing at 100 ml/hr started. Started diet, tolerating well. No nausea vomiting. Voiding on bedpan. Denies pain at this time. Ice packs applied. +CMS PP+ Encouraging incentive spirometry use. Left hip dsg intact, small amount of drainage noted. Repositioning self in bed with 1 assist. Compression boots on. Bed alarm on, safety maintained. See assessment for further documentation.
[2022-11-07] MEDS: buPROPion HCL 75 MG TABLET PO (19:59)
[2022-11-07] MEDS: Celecoxib 200 MG CAPSULE PO (19:59)
[2022-11-07] MEDS: oxyCODONE HCl ER 10 MG TAB.ER.12H PO (19:59)
[2022-11-07] MEDS: Metoprolol Tartrate 50 MG TABLET PO (20:00)
[2022-11-07] MEDS: ALPRAZolam 0.25 MG TABLET PO (22:25)
[2022-11-08 03:25] VITALS: BP 118/58; PULSE 75; RESP 18; TEMP 36.5; O2SAT 93
[2022-11-08] MEDS: Acetaminophen 325 MG TABLET 650 MG PO ×2 (05:16→14:31)
[2022-11-08] MEDS: Omeprazole 20 MG CAPSULE.DR PO (05:16)
[2022-11-08] MEDS: oxyCODONE HCl Immed Release 5 MG TABLET PO ×3 (05:17→14:31)
[2022-11-08] MEDS: Levothyroxine Sodium 125 MCG TABLET 62.5 MCG PO (05:17)
[2022-11-08 06:34] LABS: Anion Gap 12 (12-20); Blood Urea Nitrogen 17 mg/dL (9-16); Calcium 8.2 mg/dL (8.4-10.2); Carbon Dioxide 24 mmol/L (22-29); Chloride 107 mmol/L (96-108); Creatinine Clr Calc Pharmacy 61.5; Estimated Glomerular Filt Rate > 60; Glucose Fasting 98 mg/dL (60-99); Potassium 3.9 mmol/L (3.3-5.1); Sodium 139 mmol/L (135-145)
[2022-11-08 07:11] LABS: Basophils Percent Auto 0.2 % (0-2); Hematocrit 29.3 % (37.0-47.0); Hemoglobin 9.5 g/dl (12.0-16.0); Imm Gran Abs Auto 0.05 X10*3/uL (0.00-0.03); Imm Gran Pct Auto 0.5 % (0.0-0.4); Lymphocytes Absolute Auto 1.3 X10*3/uL (1.2-4.9); Lymphocytes Percent Auto 13.4 % (20-40); MANUAL DIFF FLAG SCAN; Mean Corpuscular HGB Conc 32.4 g/dl (31.0-35.0); Mean Corpuscular Hemoglobin 31.4 pg (27.0-33.0); Mean Corpuscular Volume 96.7 fL (80.0-98.0); Mean Platelet Volume 10.5 fL (9.4-12.3); Monocytes Absolute Auto 1.5 X10*3/uL (0.1-1.2); Monocytes Percent Auto 15.9 % (2-11); Neutrophils Absolute Auto 6.8 x10*3/uL (2.0-8.3); Platelet Count 160 X10*3/uL (160-400); Red Blood Count 3.03 X10*6/uL (4.20-5.50); Red Cell Distribution Width 13.6 % (11.0-16.0); SCAN SMEAR FLAG 1; White Blood Count 9.7 X10*3/uL (4.8-10.8)
[2022-11-08 08:00] VITALS: BP 123/60; PULSE 74; RESP 18; TEMP 36.1; O2SAT 92
[2022-11-08 08:08] LABS: SLIDE REVIEW VERIFIED
--- NOTE | 2022-11-08 08:09 | PM.PNORT ---
Subjective Subjective Date of Service: 11/08/22 Interval history: POD1 s/p left hip jodie. No overnight events. Patient is resting in bed comfortably. No additional complaints. Physical Exam Vital Signs: Vital Signs: Last Vital Signs Temp 97.7 F 11/08/22 03:25 Pulse 75 11/08/22 03:25 Resp 18 11/08/22 03:25 BP 118/58 L 11/08/22 03:25 Pulse Ox 93 11/08/22 03:25 O2 Del Method Nasal Cannula 11/08/22 03:25 O2 Flow Rate 2 11/08/22 03:25 BMI result Body Mass Index 21.8 Const: General: cooperative, healthy appearing and no acute distress Resp: Effort & Inspection: normal respiratory effort and able to speak in complete sentences Cardio: Rate: regular rate Peripheral pulses: Peripheral pulses 2+ throughout GI: Palpation (GI): Soft to palpation Skin: Lesions: no lesions Rashes: no rashes Extrem: Other: Left hip dressings are c/d/i. Able to dorsi/plantar flex. NVI. Procedures Date of Service Date of Service: 11/08/22 Progress Note: A&P Assessment and plan (1) Fracture of femoral neck, left, closed: Status: Acute Assessment and Plan: Continue pain mgmnt Begin Lovenox for dvt ppx begin PT/OT for left hip jodie - WBAT Dispo planning-Pending PT eval, pain mgmnt (2) Closed fracture of left hip: Status: Acute Time Spent With Patient Time: Total time managing care of this patient today ____ minutes. Quality Stroke Does the patient have a stroke diagnosis?: No VTE Prior VTE?: No VTE Risk Level:: Surgical - very high VTE Device Contraindication: N/A - Device Ordered VTE Drug Contraindication: Treatment Not Indicated
[2022-11-08] MEDS: oxyCODONE HCl ER 10 MG TAB.ER.12H PO (08:33)
[2022-11-08] MEDS: Multivitamin TABLET 1 TAB PO (08:33)
[2022-11-08] MEDS: Valsartan 160 MG TABLET PO (08:34)
[2022-11-08] MEDS: hydroCHLOROthiazide 25 MG TABLET PO (08:34)
[2022-11-08] MEDS: Celecoxib 200 MG CAPSULE PO (08:34)
[2022-11-08] MEDS: Metoprolol Tartrate 50 MG TABLET PO (08:34)
[2022-11-08] MEDS: Lactated Ringers 1,000 ML 100 ML IVCONT (08:35)
[2022-11-08] MEDS: buPROPion HCL 75 MG TABLET PO (08:35)
[2022-11-08] MEDS: HYDROmorphone HCl 0.5 MG/0.5 ML SYRINGE 0.25 MG IVPUSH (08:36)
[2022-11-08 09:37] VITALS: PULSE 93; O2SAT 94
[2022-11-08] MEDS: Enoxaparin Sodium 40 MG/0.4 ML SYRINGE SUBCUT (10:38)
[2022-11-08 11:41] VITALS: BP 107/55; PULSE 63; RESP 18; TEMP 37; O2SAT 95
--- NOTE | 2022-11-08 12:46 | PM.DS ---
DS: Providers Provider Date of Service: 11/08/22 Date of admission: 11/06/22 20:16 Date of discharge: 11/08/22 Primary care physician: Unknown Physician Attending physician on discharge: Erick Hall Discharging clinician: Erick Hall DS: Diagnosis Discharge Diagnosis (1) Fracture of femoral neck, left, closed: Status: Acute (2) Closed fracture of left hip: Status: Acute DS: Summary Hospital Course Hospital Course: 72 year old female with a past medical history of hypertension, AFib status post cardioversion no longer on anticoagulation, presented to the ED after sustaining a mechanical fall.? Patient reports that she was on the deck, was going down the stairs and missed a step. She reports that her knee took the brunt of the fall and then she landed on her hip. She felt immediate pain and was unable to ambulate. Of note, the patient is from [place] and is visiting for her [employer] graduation. Hospital course: Patient was admitted to the hospital status post mechanical fall and sustained left hip fracture-patient was seen by surgery and now status post left hip arthroplasty: Afterwards patient is doing well , seen by PT-[facility]. Further management outpatient. Plan: Continue pain medications as needed, going to rehab. Follow-up outpatient with PCP . Please see ortho instructions for further information. Above management discussed the patient in detail length she understand and in agreement with the above plan, time spent 50 minute. Time Spent with Patient Time attestation: Total time managing care of this patient today ____ minutes. Discharge coordination time: Greater than 30 minutes Quality: Safe Use of Opioids Does Pt have an Active Cancer Diagnosis on the Problem List?: No Quality: Stroke Does the patient have a stroke diagnosis?: No Physical Exam Vital Signs: Vital Signs: Last Vital Signs Temp 98.6 F 11/08/22 11:41 Pulse 63 11/08/22 11:41 Resp 18 11/08/22 11:41 BP 107/55 L 11/08/22 11:41 Pulse Ox 95 11/08/22 11:41 O2 Del Method Nasal Cannula 11/08/22 11:41 O2 Flow Rate 2.0 11/08/22 11:41 BMI result Body Mass Index 21.8 Appearance: Alert.? Oriented X3. cvs: rrr, [id number] res: clear to auscultation ,no rhonchii or wheezing abd: no rebound or guarding ,nt, bs present. ext pulses present , no cyanosis . left hip area-seems fine ,no significant pain neuro: axo3 , nonfocal. DS: Data Data Completed and Pending Pending studies at discharge: Pending at discharge 11/07/22 10:31 Surgical [PTH] Routine Labs on day of discharge: Laboratory Results - last 24 hr 11/08/22 11/08/22 05:09 05:09 WBC 9.7 RBC 3.03 L Hgb 9.5 L Hct 29.3 L MCV 96.7 MCH 31.4 MCHC 32.4 RDW 13.6 Plt Count 160 MPV 10.5 Immature Gran % (Auto) 0.5 H Neut % (Auto) 70.0 Lymph % (Auto) 13.4 L [place] % (Auto) 15.9 H Eos % (Auto) 0.0 Baso % (Auto) 0.2 Lymph # (Auto) 1.3 [place] # (Auto) 1.5 H Eos # (Auto) 0.0 Baso # (Auto) 0.0 Abs Immat Gran (auto) 0.05 H Absolute Neuts (auto) 6.8 Absolute Nucleated RBC 0.000 Nucleated RBC % (auto) 0.0 Smear Tech's Comments VERIFIED Sodium 139 Potassium 3.9 Chloride 107 Carbon Dioxide 24 Anion Gap 12 BUN 17 H Creatinine 0.75 Estim Creat Clear Calc 61.5 Estimated GFR > 60 Fasting Glucose 98 Calcium 8.2 L D Imaging Chest x-ray: Radiologist's impression: ITS Impressions Pelvis CT 11/06/22 17:57 IMPRESSION: Left femoral neck fracture with apex anterior angulation. The left femoral head itself is well seated within the acetabulum with the fracture impacted and rotated into the femoral head. The appearance is more acute to subacute but I do not have prior studies available for comparison. Knee X-Ray 11/06/22 18:05 IMPRESSION: No acute fracture or dislocation. Hip X-Ray 11/06/22 20:18 FINDINGS/IMPRESSION: Subcapital left femoral neck fracture is again noted with anterior apex angulation. The femoral head is well seated in the acetabulum. No additional acute fractures are noted in the pelvis. Mild deformity of the right inferior pubic ramus appears chronic. Right hip joint and symphysis pubis are intact. Limited evaluation of the sacroiliac joints is unremarkable. Posterior fusion hardware is redemonstrated at L4-L5. Anastomotic stephani are noted projecting over the right iliac bone. Pelvis X-Ray 11/07/22 12:17 IMPRESSION: Status post left hip hemiarthroplasty. Alignment is normal at the left hip. Discharge Plan Discharge Anticipated Discharge Date/Time: 11/08/22 12:32 Patient Disposition: er [facility] Discharge Diagnosis: s/p left hip asthroplasty Referrals: [facility] [Other] - 1 Week Physician,Unknown J [Primary Care Provider] - 1 Week Discharge Medications: New acetaminophen 325 mg Tablet 650 mg PO Q6H PRN (Reason: Pain, Mild (Pain Scale 1-3)) 30 Days Qty: 240 0RF enoxaparin 40 mg/0.4 mL Syringe 40 mg subcut Q24H 42 Days Qty: 16.8 0RF celecoxib 200 mg Capsule 200 mg PO BID 30 Days Qty: 60 0RF docusate sodium 100 mg Capsule 100 mg PO DAILY PRN (Reason: Constipation) 60 Days Qty: 60 0RF oxycodone 5 mg Tablet 5 mg PO Q4H PRN (Reason: Pain, Moderate(Pain Scale 4-6)) 7 Days Qty: 42 0RF Rx Instructions: Partial Fill upon patient request. omeprazole 20 mg capsule,delayed release(DR/EC) 20 mg PO DAILY Qty: 30 0RF Continued multivitamin Tablet 1 tab PO DAILY albuterol sulfate 2.5 mg /3 mL (0.083 %) solution for nebulization 2.5 mg inhalation Q6H PRN (Reason: wheezing) alprazolam 0.25 mg tablet 0.25 mg PO TID PRN (Reason: anxiety) pantoprazole 40 mg tablet,delayed release (DR/EC) 40 mg PO BID levothyroxine [Synthroid] 125 mcg tablet 62.5 mcg PO DAILY@0600 bupropion HCl 75 mg tablet 75 mg PO BID metoprolol tartrate 50 mg tablet 50 mg PO BID hydrochlorothiazide 25 mg tablet 25 mg PO DAILY colestipol 1 gram tablet 1 g PO DAILY irbesartan 300 mg tablet 300 mg PO DAILY Discontinued hydrocodone-acetaminophen 7.5-325 mg tablet 1 tab PO Q6H PRN (Reason: Breakthrough Pain) Discharge Orders: Discharge Order (Routine); Ordered 11/08/22 Ordered By: Bria Singh Activity on Discharge: Use cane or walker Stand Alone Forms: Patient Portal Discharge page Care Plan Goals: restore fxn to left hip Health Concerns: Patient was admitted after mechanical fall and sustained a fracture-status post hemiarthroplasty of left hip. Doing better. Seen by PT, going to rehab today. Says Plan of Treatment: Physical Therapy for total hip arthroplasty: posterior precautions, gait training, ROM, strength Limit stair climbing No showering, no tub bath-keep dressing clean, dry and intact No driving x6 weeks Continue Lovenox once a day x 6 weeks Follow up with [facility] Orth[facility]ics in 2 weeks Assessment: as above.
--- NOTE | 2022-11-08 12:50 | MHC.CM.PN ---
pt being dcd today to [facility] at 4
--- NOTE | 2022-11-08 13:30 | MHC.CM.PN ---
alan keyes notified of dc
--- NOTE | 2022-11-08 14:19 | HO.POSTANES ---
Post Anesthesia Evaluation Post Anesthesia Evaluation Date of Service: 11/08/22 Vital Signs: Vital Signs Temp Pulse Resp BP Pulse Ox O2 Del Method O2 Flow Rate 11/08/22 11:41 98.6 F 63 18 107/55 L 95 Nasal Cannula 2.0 11/08/22 09:37 93 94 11/08/22 08:00 96.9 F 74 18 123/60 92 Nasal Cannula 2.0 11/08/22 03:25 97.7 F 75 18 118/58 L 93 Nasal Cannula 2 Anesthesia: General Mental Status: Awake Pain Control: Satisfactory Nausea/Vomiting: None Hydration: Adequate Anesthesia-Related Issues: No Anes. Related Issues
== END 2022-11-08 17:07 | disposition intermediate care facility (04) | DRG 522 ==
LOC: HO.ED 19:30 → HO.EDOVER 20:24 → HO.S3 20:28
PROVIDERS: Orthopaedic Surgery; Physician Assistant; Admitting Provider Internal Medicine; Emergency Provider Emergency Medicine; Visit Provider Internal Medicine
PROC: 0SRS0JA Replacement of Left Hip Joint, Femoral Surface with Synthetic Substitute, Uncemented, Open Approach (ICD-10-PCS; CPT 27125; principal; 2022-11-07 09:00)
DX: S72.012A Unspecified intracapsular fracture of left femur, initial encounter for closed fracture (principal); I48.91 Unspecified atrial fibrillation; W10.8XXA Fall (on) (from) other stairs and steps, initial encounter; E03.9 Hypothyroidism, unspecified; I10 Essential (primary) hypertension; Z95.818 Presence of other cardiac implants and grafts; Z88.2 Allergy status to sulfonamides; Z79.890 Hormone replacement therapy; Z79.899 Other long term (current) drug therapy
CPT/HCPCS: 36415; 72170; 72192; 73502; 73560; 80048; 85025; 86850; 86900; 86901; 88305; 88307; 88311; 97161; 97165; 99285; C1776; J0131; J0690; J1100; J1170; J1650; J2270; J2405; J2795; J3010

== ENCOUNTER 2022-11-15 08:23 | Outpatient (REF) | payer OTHER, MEDICARE, SELFPAY ==
--- NOTE | ~2022-11-15 | XR_ITS ---
EXAMINATION: XR HIP, LEFT CLINICAL INFORMATION: Postop COMPARISON: None available. TECHNIQUE: Two views of the left hip and one view of the pelvis. FINDINGS: There is a left hip replacement in satisfactory position. No fracture or dislocation. Bones of the pelvis and right hip are unremarkable. There are postsurgical changes to the lower lumbar spine and in the right lower quadrant. There are postsurgical changes to the soft tissues over the left hip. XR/XR hip LT w [id number] IMPRESSION: Satisfactory appearance of left hip replacement.
== END 2022-11-15 08:24 | disposition home or self-care (01) ==
LOC: HO.HOSX 08:23
PROVIDERS: Visit Provider Physician Assistant
DX: S72.002A Fracture of unspecified part of neck of left femur, initial encounter for closed fracture (principal); W19.XXXA Unspecified fall, initial encounter; Y93.9 Activity, unspecified; Y92.9 Unspecified place or not applicable; Y99.9 Unspecified external cause status
CPT/HCPCS: 73502; 99212